=== PATIENT | male | born 1980 | race American Indian/Alaskan Native ===

== ENCOUNTER 2017-02-28 22:56 | Emergency (ER) | payer SELFPAY ==
[2017-03-01 00:29] VITALS: BP 153/107
[2017-03-01] MEDS ORDERED: ULTRAM PO ONE (02:19)
--- NOTE | 2017-03-01 02:19 | Emergency Department Report ---
Earache (Pediatric) - HPI Chief Complaint: Earache Stated Complaint: LT EAR PAIN Duration: Today Location: Left Severity: Mild Symptoms: Yes URI (patient states he had influenza last week), Yes History of Moisture in Ear, No Sore Throat, No Trauma to EAC, No Fever, No Vomiting, No Cough, No Shortness of Breath Other History: 37 year old male presents to ED with left sided ear pain x1 day. patient is stable, neurologically intact and in no acute distress. ED Review of Systems ROS: Stated complaint: LT EAR PAIN Other details as noted in HPI Constitutional: denies: chills, fever Eyes: denies: eye pain, eye discharge, vision change ENT: ear pain. denies: throat pain Respiratory: denies: cough, shortness of breath, wheezing Cardiovascular: denies: chest pain, palpitations Endocrine: no symptoms reported Gastrointestinal: denies: abdominal pain, nausea, diarrhea Genitourinary: denies: urgency, dysuria Musculoskeletal: denies: back pain, joint swelling, arthralgia Skin: denies: rash, lesions Neurological: denies: headache, weakness, paresthesias Psychiatric: denies: anxiety, depression Hematological/Lymphatic: denies: easy bleeding, easy bruising Peds Earache exam - Exam General: Vital signs noted. No distress. Alert and acting appropriately. HEENT: Yes Moist Mucous Membranes, No Pharyngeal Erythema, No Pharyngeal Exudates, No Rhinorrhea, No Conjuctival Injection, No Frontal Tenderness, No Maxillary Tenderness Ear: Left EAC Pain (moderate erythema to left external auditory canal), Neither TM Bulge, Neither TM Erythema, Neither EAC Discharge, Neither Cerumen Impaction Peds Neck exam: Adenopathy: No, Supple: Yes Peds Lung exam: Good Air Exchange: Yes, Wheezes: No, Stridor: No, Cough: No, Nasal Flaring: No, Retractions: No, Use of Accessory Muscles: No Heart: Yes Regular, No Murmur Peds abdomen: Abdominal Tenderness: No, Peritoneal Signs: No, Normal Bowel Sounds: Yes, Distention: No Peds Skin Exam: Rash: No, Eczema: No Neurologic: Alert and oriented, no deficits. Musculoskeletal: Unremarkable. ED Course Vital Signs 03/01/17 00:24 Temperature 97.7 F Pulse Rate 85 Respiratory 18 Rate Blood Pressure 153/107 O2 Sat by Pulse 100 Oximetry ED Medical Decision Making - Medical Decision Making 37 year old male presents to ED with left sided ear pain. patient appears to have to Otitis externa on examination. patient has no evidence of mastoiditis or surrounding outer ear infection. patient is stable, neurologically intact and in no acute distress. Critical care attestation.: If time is entered above; I have spent that time in minutes in the direct care of this critically ill patient, excluding procedure time. ED Disposition Clinical Impression: Otitis externa of left ear Qualifiers: Otitis externa type: unspecified type Chronicity: acute Qualified Code(s): H60.502 - Unspecified acute noninfective otitis externa, left ear Disposition: TO HOME OR SELFCARE Is pt being admited?: No Does the pt Need Aspirin: No Condition: Stable Instructions: Otitis Externa (ED) Prescriptions: Antipyrine/Benzocaine/Glycerin [Auralgan Otic] 2 drops BID #1 bottle Neomy/Polymyx B/Hc Otic Susp [Cortisporin (Otic) Susp] 4 drops TID #1 bottle Referrals: PRIMARY CARE, [Primary Care Provider] - 3-5 Days
== END 2017-03-01 02:40 | disposition home or self-care (01) ==
LOC: ED 22:56
DX: H60.92 Unspecified otitis externa, left ear (principal)
CPT/HCPCS: 99282